=== PATIENT | male | born 1950 | race African-American/Black ===

== ENCOUNTER 2021-05-10 05:47 | Inpatient (IN) ==
[2021-05-04 11:25] LABS: Basophils % 0.2 % (0.0-0.8); Eosinophils % 0.1 % (0.00-10.9); Hematocrit 30.7 VOL% (42.0-52.0); Hemoglobin 9.7 GM/DL (14.0-18.0); Immature Granulocytes % 4.1 %; Immature Granulocytes Absolute 0.45 #; Lymphocytes # 1.6 10*3/uL (1.4-4.0); Lymphocytes % 14.1 % (21.2-54.2); Mean Corpuscular HGB Conc 31.6 GM/DL (32-36); Mean Corpuscular Volume 87.2 FL (87-102); Mean Platelet Volume 10.7 FL (9.6-12.0); Monocytes % 5.8 % (1.7-12.7); Neutrophils % 75.7 % (38.7-73.9); Platelet Count 383 T/CUMM (130-400); Red Blood Count 3.52 MC/CUMM (3.8-5.5); Red Cell Distribution Width 14.6 % (9.3-17.3)
[2021-05-04 11:55] LABS: Alanine Aminotransferase 38 U/L (16-61); Albumin 2.8 G/DL (3.4-5.0); Alkaline Phosphatase 57 U/L (45-117); Aspartate Amino Transferase 19 U/L (0-37); Bilirubin,Total < 0.39 MG/DL (0.20-1.00); Blood Urea Nitrogen 124 MG/DL (7-18); Calcium 8.2 MG/DL (8.5-10.1); Carbon Dioxide 14 MMOL/L (21-32); Estimated Glom Filtration Rate 6 ML/MIN; Glucose 91 MG/DL (74-106); Osmolality,Calculated 322.1 MOS/KG (273-304); Sodium 142 MMOL/L (136-145); Total Protein 6.1 G/DL (6.4-8.2)
[2021-05-10] MEDS ORDERED: cefTRIAXone 1,000 MG in SODIUM CHLORIDE 0.9% 100 ML IV ONE (07:00)
[2021-05-10] MEDS ORDERED: LACTATED RINGERS 1,000 ML IV SCH (09:00)
[2021-05-10 09:02] LABS: Basophils % 0.2 % (0.0-0.8); Hematocrit 27.1 VOL% (42.0-52.0); Hemoglobin 8.3 GM/DL (14.0-18.0); Immature Granulocytes % 1.1 %; Immature Granulocytes Absolute 0.14 #; Lymphocytes % 7.6 % (21.2-54.2); Mean Corpuscular HGB Conc 30.6 GM/DL (32-36); Mean Platelet Volume 10.6 FL (9.6-12.0); Monocytes % 6.1 % (1.7-12.7); Platelet Count 178 T/CUMM (130-400); Red Blood Count 3.01 MC/CUMM (3.8-5.5); Red Cell Distribution Width 15.2 % (9.3-17.3); White Blood Count 12.7 T/CUMM (4-12)
[2021-05-10 09:33] LABS: Calcium 8.3 MG/DL (8.5-10.1); Osmolality,Calculated 319.4 MOS/KG (273-304)
[2021-05-10 09:36] LABS: Potassium 6.8 MMOL/L (3.5-5.1)
[2021-05-10] MEDS ORDERED: MAGNESIUM SULF RIDER 2 GM/50 ML PREMIX IV ONE (11:25)
[2021-05-10 13:02] LABS: Calcium 8.2 MG/DL (8.5-10.1); Osmolality,Calculated 317.4 MOS/KG (273-304)
[2021-05-10 13:05] LABS: Potassium 6.2 MMOL/L (3.5-5.1)
[2021-05-10] MEDS ORDERED: ALBUTEROL 1.25 MG/3 ML NEB RESP TX PRN (14:21)
[2021-05-10] MEDS ORDERED: SODIUM POLYSTYRENE SULFATE 15 GM/60 ML BOTTLE PO ONE (14:49)
[2021-05-10] MEDS: SODIUM BICARBONATE 650 MG TABLET PO SCH ×2 (15:27→21:40)
[2021-05-10] MEDS: MYCOPHENOLATE MOFETIL 250 MG CAPSULE PO SCH ×2 (15:27→21:40)
[2021-05-10] MEDS: SODIUM ZIRCONIUM CYCLOSILICATE 10 GM PACK PO SCH ×3 (15:28→21:40)
[2021-05-10] MEDS ORDERED: SODIUM BICARBONATE 50 MEQ/50 ML VIAL IV ONE (15:36)
[2021-05-10] MEDS ORDERED: SODIUM BICARB INJ 50 MEQ in IV BAG 1 EACH IV ONE ×2 (16:00→19:00)
[2021-05-10] MEDS ORDERED: MAGNESIUM HYDROXIDE SUSP 30 ML UDCUP PO ONE (17:00)
[2021-05-10] MEDS ORDERED: AZITHROMYCIN 250 MG TABLET PO ONE (17:00)
[2021-05-10] MEDS: ALBUTEROL/IPRATROPIUM 3 ML NEB RESP TX SCH (19:12)
[2021-05-10 20:55] LABS: Bacteria,Urine Occasional /HPF (Few); Bilirubin,Urine Negative (Negative); Blood, Urine Small mg/dL (Negative); Glucose,Urine (UA) Negative (Negative); Ketones,Urine Negative (Negative); Mucus,Urine Occasional /LPF (Occasional); Nitrite,Urine Negative (Negative); Protein,Urine 30 MG/DL; RBC,Urine 4 /HPF (0-4); Urine Appearance CLEAR (Clear); Urine Color Straw (Yellow); Urine Specific Gravity 1.009 (1.001-1.035); Urine Urobilinogen < 2.0 EU/DL (0.2-1.0)
[2021-05-10] MEDS ORDERED: SENNA 8.6 MG TABLET PO SCH (21:00)
[2021-05-10] MEDS: predniSONE 10 MG TABLET PO SCH (21:40)
[2021-05-10] MEDS: DOCUSATE SODIUM 100 MG CAPSULE PO SCH (21:41)
[2021-05-10] MEDS: SIMVASTATIN 10 MG TABLET PO SCH (21:41)
[2021-05-10] MEDS: FINASTERIDE 5 MG TABLET PO SCH (21:41)
[2021-05-10] MEDS: amLODIPine 5 MG TABLET PO SCH (21:41)
[2021-05-10] MEDS: TAMSULOSIN 0.4 MG CAPSULE PO SCH (21:41)
[2021-05-10] MEDS: POLYETHYLENE GLYCOL POWDER 17 GM PACK PO SCH (21:49)
[2021-05-11] MEDS: ALBUTEROL/IPRATROPIUM 3 ML NEB RESP TX SCH ×4 (00:21→19:55)
[2021-05-11 06:56] LABS: Hemoglobin 7.9 GM/DL (14.0-18.0); Immature Granulocytes % 0.9 %; Immature Granulocytes Absolute 0.08 #; Lymphocytes # 0.8 10*3/uL (1.4-4.0); Lymphocytes % 8.9 % (21.2-54.2); Mean Corpuscular HGB Conc 31.6 GM/DL (32-36); Mean Corpuscular Volume 86.8 FL (87-102); Mean Platelet Volume 11.5 FL (9.6-12.0); Monocytes % 4.4 % (1.7-12.7); Neutrophils % 85.8 % (38.7-73.9); Platelet Count 167 T/CUMM (130-400); Red Blood Count 2.88 MC/CUMM (3.8-5.5); White Blood Count 9.3 T/CUMM (4-12)
[2021-05-11 07:22] LABS: Calcium 8.3 MG/DL (8.5-10.1); Osmolality,Calculated 314.4 MOS/KG (273-304)
[2021-05-11 07:25] LABS: Risk Ratio 2.25; VLDL Cholesterol 28.6 MG/DL
[2021-05-11 07:27] LABS: % Iron Saturation 21.7 % (18-50); Ferritin 1065.6 ng/mL (26-388)
[2021-05-11 07:35] LABS: Parathyroid Hormone Intact 223.3 PG/ML (18.4-80.1)
[2021-05-11 07:55] LABS: Folate > 24.00 NG/ML (5.38-24.0); Vitamin B12 > 2000 PG/ML (211-911)
[2021-05-11 08:04] LABS: Sedimentation Rate-Westergren 69 MM/HR (0-20)
[2021-05-11 08:29] LABS: Hepatitis B Core IgM Quant 0.13 Index; Hepatitis B Surface Ag Quant < 0.10 Index; Hepatitis B Surface Ag Result Non-Reactive (NonReactive); Hepatitis C Virus Ab Quant 0.02 Index; Hepatitis C Virus Ab Result Non-Reactive (NonReactive)
[2021-05-11 09:14] LABS: Basophils % 0.1 % (0.0-0.8); Eosinophils % 0.1 % (0.00-10.9); Hematocrit 25.2 VOL% (42.0-52.0); Hemoglobin 7.9 GM/DL (14.0-18.0); Immature Granulocytes Absolute 0.09 #; Lymphocytes # 0.8 10*3/uL (1.4-4.0); Lymphocytes % 8.3 % (21.2-54.2); Mean Corpuscular HGB Conc 31.3 GM/DL (32-36); Mean Corpuscular Volume 87.5 FL (87-102); Mean Platelet Volume 11.2 FL (9.6-12.0); Monocytes % 4.9 % (1.7-12.7); Neutrophils % 85.6 % (38.7-73.9); Platelet Count 166 T/CUMM (130-400); Red Blood Count 2.88 MC/CUMM (3.8-5.5); Red Cell Distribution Width 15.2 % (9.3-17.3); White Blood Count 9.3 T/CUMM (4-12)
[2021-05-11] MEDS: DOCUSATE SODIUM 100 MG CAPSULE PO SCH (10:43)
[2021-05-11] MEDS: MYCOPHENOLATE MOFETIL 250 MG CAPSULE PO SCH ×3 (10:43→21:42)
[2021-05-11] MEDS: AZITHROMYCIN 250 MG TABLET PO SCH (10:44)
[2021-05-11] MEDS: SODIUM BICARBONATE 650 MG TABLET PO SCH ×3 (10:44→21:43)
[2021-05-11] MEDS: cefTRIAXone 1,000 MG in SODIUM CHLORIDE 0.9% 100 ML IV SCH (10:44)
[2021-05-11] MEDS ORDERED: LUBIPROSTONE 24 MCG CAPSULE PO SCH (11:00)
[2021-05-11] MEDS ORDERED: LIDOCAINE 1%/EPI INJ 20 ML VIAL ONE (12:51)
[2021-05-11] MEDS ORDERED: BUPIVACAINE MPF 0.25% 30 ML VIAL ONE (12:51)
[2021-05-11] MEDS ORDERED: HEPARIN 5,000 UNIT/1 ML VIAL ONE (12:51)
[2021-05-11] MEDS ORDERED: SODIUM CHLORIDE 0.9% 250 ML IV SCH (13:00)
[2021-05-11] MEDS ORDERED: MIDAZOLAM 2 MG/2 ML VIAL ONE (13:16)
[2021-05-11] MEDS ORDERED: propofoL 200 MG/20 ML VIAL IV ONE (13:36)
[2021-05-11] MEDS ORDERED: HEPARIN 10,000 UNIT/10 ML VIAL IV SCH (15:30)
[2021-05-11] MEDS: CHOLECALCIFEROL 1,000 UNIT TABLET PO SCH (17:28)
[2021-05-11] MEDS: SODIUM ZIRCONIUM CYCLOSILICATE 10 GM PACK PO SCH ×2 (17:29→21:43)
[2021-05-11] MEDS: POLYETHYLENE GLYCOL POWDER 17 GM PACK PO SCH (17:31)
[2021-05-11] MEDS: SIMVASTATIN 10 MG TABLET PO SCH (21:42)
[2021-05-11] MEDS: TAMSULOSIN 0.4 MG CAPSULE PO SCH (21:42)
[2021-05-11] MEDS: predniSONE 10 MG TABLET PO SCH (21:42)
[2021-05-11] MEDS: amLODIPine 5 MG TABLET PO SCH (21:43)
[2021-05-11] MEDS: FINASTERIDE 5 MG TABLET PO SCH (21:43)
[2021-05-12] MEDS: ALBUTEROL/IPRATROPIUM 3 ML NEB RESP TX SCH ×4 (02:14→19:40)
[2021-05-12 04:54] LABS: Basophils % 0.1 % (0.0-0.8); Hematocrit 26.8 VOL% (42.0-52.0); Hemoglobin 8.4 GM/DL (14.0-18.0); Immature Granulocytes % 1.1 %; Immature Granulocytes Absolute 0.09 #; Lymphocytes # 0.7 10*3/uL (1.4-4.0); Lymphocytes % 9.1 % (21.2-54.2); Mean Corpuscular HGB Conc 31.3 GM/DL (32-36); Mean Corpuscular Volume 87.6 FL (87-102); Mean Platelet Volume 11.1 FL (9.6-12.0); Monocytes % 5.4 % (1.7-12.7); Neutrophils % 84.3 % (38.7-73.9); Platelet Count 149 T/CUMM (130-400); Red Blood Count 3.06 MC/CUMM (3.8-5.5); White Blood Count 8.2 T/CUMM (4-12)
[2021-05-12 05:17] LABS: Hypochromasia 1+; Microcytosis 1+; Platelet Estimate Adequate
[2021-05-12 05:28] LABS: Calcium 8.1 MG/DL (8.5-10.1); Osmolality,Calculated 297.5 MOS/KG (273-304)
[2021-05-12] MEDS ORDERED: INSULIN REGULAR 10 UNIT, CALCIUM GLUCONATE 1,000 MG in DEXTROSE 10% 250 ML IV ONE (06:06)
[2021-05-12] MEDS: CHOLECALCIFEROL 1,000 UNIT TABLET PO SCH (11:32)
[2021-05-12] MEDS: AZITHROMYCIN 250 MG TABLET PO SCH (11:32)
[2021-05-12] MEDS: cefTRIAXone 1,000 MG in SODIUM CHLORIDE 0.9% 100 ML IV SCH (11:32)
[2021-05-12] MEDS: SODIUM BICARBONATE 650 MG TABLET PO SCH ×3 (11:32→21:24)
[2021-05-12] MEDS: MYCOPHENOLATE MOFETIL 250 MG CAPSULE PO SCH ×3 (11:32→21:24)
[2021-05-12] MEDS: LINACLOTIDE 145 MCG CAPSULE PO SCH (12:44)
[2021-05-12] MEDS ORDERED: BISACODYL 5 MG TABLET PO ONE (15:00)
[2021-05-12] MEDS ORDERED: SODIUM PHOSPHATE ENEMA 133 ML BOTTLE RECTAL ONE (15:00)
[2021-05-12] MEDS: LACTULOSE 20 GM/30 ML UDCUP PO SCH (21:23)
[2021-05-12] MEDS: SIMVASTATIN 10 MG TABLET PO SCH (21:24)
[2021-05-12] MEDS: TAMSULOSIN 0.4 MG CAPSULE PO SCH (21:24)
[2021-05-12] MEDS: DOCUSATE SODIUM 100 MG CAPSULE PO SCH (21:24)
[2021-05-12] MEDS: predniSONE 10 MG TABLET PO SCH (21:24)
[2021-05-12] MEDS: FINASTERIDE 5 MG TABLET PO SCH (21:24)
[2021-05-12] MEDS: POLYETHYLENE GLYCOL POWDER 17 GM PACK PO SCH (21:33)
[2021-05-12] MEDS: LUBIPROSTONE 24 MCG CAPSULE PO SCH (21:34)
[2021-05-13] MEDS: ALBUTEROL/IPRATROPIUM 3 ML NEB RESP TX SCH ×4 (00:45→20:15)
[2021-05-13 07:04] LABS: Basophils % 0.1 % (0.0-0.8); Hematocrit 30.8 VOL% (42.0-52.0); Hemoglobin 9.2 GM/DL (14.0-18.0); Immature Granulocytes % 1.9 %; Immature Granulocytes Absolute 0.16 #; Lymphocytes # 0.6 10*3/uL (1.4-4.0); Lymphocytes % 7.5 % (21.2-54.2); Mean Corpuscular HGB Conc 29.9 GM/DL (32-36); Mean Corpuscular Volume 89.3 FL (87-102); Mean Platelet Volume 11.5 FL (9.6-12.0); Monocytes % 6.3 % (1.7-12.7); Neutrophils % 84.2 % (38.7-73.9); Platelet Count 155 T/CUMM (130-400); Red Blood Count 3.45 MC/CUMM (3.8-5.5); Red Cell Distribution Width 15.1 % (9.3-17.3); White Blood Count 8.6 T/CUMM (4-12)
[2021-05-13 07:31] LABS: Calcium 8.7 MG/DL (8.5-10.1); Osmolality,Calculated 295.1 MOS/KG (273-304); Potassium 4.7 MMOL/L (3.5-5.1)
[2021-05-13] MEDS: cefTRIAXone 1,000 MG in SODIUM CHLORIDE 0.9% 100 ML IV SCH (08:17)
[2021-05-13] MEDS: DOCUSATE SODIUM 100 MG CAPSULE PO SCH ×2 (08:18→22:37)
[2021-05-13] MEDS: MYCOPHENOLATE MOFETIL 250 MG CAPSULE PO SCH ×3 (08:18→22:36)
[2021-05-13] MEDS: AZITHROMYCIN 250 MG TABLET PO SCH (08:18)
[2021-05-13] MEDS: SODIUM BICARBONATE 650 MG TABLET PO SCH ×3 (08:18→22:37)
[2021-05-13] MEDS: CHOLECALCIFEROL 1,000 UNIT TABLET PO SCH (08:18)
[2021-05-13] MEDS: LUBIPROSTONE 24 MCG CAPSULE PO SCH ×2 (08:18→22:36)
[2021-05-13] MEDS: LINACLOTIDE 145 MCG CAPSULE PO SCH (08:23)
[2021-05-13] MEDS: LACTULOSE 20 GM/30 ML UDCUP PO SCH (09:25)
[2021-05-13] MEDS: POLYETHYLENE GLYCOL POWDER 17 GM PACK PO SCH ×2 (09:26→22:38)
[2021-05-13 11:24] LABS: Hemoglobin A1 (Alkaline) 96.7 % (96.5-98.5); Hemoglobin A2 (Alkaline) 3.3 % (1.5-3.5)
[2021-05-13] MEDS ORDERED: ceFAZolin 2,000 MG/50 ML DUPLEX IV ONE (13:59)
[2021-05-13] MEDS: ENOXAPARIN 60 MG/0.6 ML SYRINGE SUBCUT SCH (16:25)
[2021-05-13] MEDS: TAMSULOSIN 0.4 MG CAPSULE PO SCH (22:37)
[2021-05-13] MEDS: FINASTERIDE 5 MG TABLET PO SCH (22:37)
[2021-05-13] MEDS: SIMVASTATIN 10 MG TABLET PO SCH (22:38)
[2021-05-13] MEDS: predniSONE 10 MG TABLET PO SCH (22:38)
[2021-05-14] MEDS: ALBUTEROL/IPRATROPIUM 3 ML NEB RESP TX SCH ×4 (01:48→19:23)
[2021-05-14 05:29] LABS: Basophils % 0.2 % (0.0-0.8); Eosinophils % 0.4 % (0.00-10.9); Hematocrit 27.3 VOL% (42.0-52.0); Hemoglobin 8.2 GM/DL (14.0-18.0); Immature Granulocytes % 3.5 %; Immature Granulocytes Absolute 0.35 #; Lymphocytes # 0.8 10*3/uL (1.4-4.0); Mean Platelet Volume 10.8 FL (9.6-12.0); Monocytes % 6.5 % (1.7-12.7); Neutrophils % 81.4 % (38.7-73.9); Platelet Count 127 T/CUMM (130-400); Red Cell Distribution Width 14.8 % (9.3-17.3); White Blood Count 9.9 T/CUMM (4-12)
[2021-05-14 05:54] LABS: Calcium 8.4 MG/DL (8.5-10.1); Osmolality,Calculated 284.5 MOS/KG (273-304); Potassium 4.3 MMOL/L (3.5-5.1)
[2021-05-14 06:21] LABS: Band Neutrophils 2 % (0-10); Eosinophils 1 % (0-10); Hypochromasia 1+; Lymphocytes 6 % (20-55); Microcytosis 1+; Platelet Estimate Normal; Segmented Neutrophils 90 % (50-85); Total Cells Counted 100
[2021-05-14] MEDS: POLYETHYLENE GLYCOL POWDER 17 GM PACK PO SCH (08:23)
[2021-05-14] MEDS: MYCOPHENOLATE MOFETIL 250 MG CAPSULE PO SCH ×3 (08:25→21:19)
[2021-05-14] MEDS: LUBIPROSTONE 24 MCG CAPSULE PO SCH (08:25)
[2021-05-14] MEDS: ENOXAPARIN 60 MG/0.6 ML SYRINGE SUBCUT SCH (08:25)
[2021-05-14] MEDS: CHOLECALCIFEROL 1,000 UNIT TABLET PO SCH (08:25)
[2021-05-14] MEDS: LINACLOTIDE 145 MCG CAPSULE PO SCH (08:25)
[2021-05-14] MEDS: AZITHROMYCIN 250 MG TABLET PO SCH (08:25)
[2021-05-14] MEDS: DOCUSATE SODIUM 100 MG CAPSULE PO SCH ×2 (08:25→21:19)
[2021-05-14] MEDS: SODIUM BICARBONATE 650 MG TABLET PO SCH ×3 (08:25→21:20)
[2021-05-14] MEDS: cefTRIAXone 1,000 MG in SODIUM CHLORIDE 0.9% 100 ML IV SCH (08:26)
[2021-05-14] MEDS: predniSONE 10 MG TABLET PO SCH (21:19)
[2021-05-14] MEDS: TAMSULOSIN 0.4 MG CAPSULE PO SCH (21:19)
[2021-05-14] MEDS: FINASTERIDE 5 MG TABLET PO SCH (21:20)
[2021-05-14] MEDS: SIMVASTATIN 10 MG TABLET PO SCH (21:20)
[2021-05-15] MEDS: ALBUTEROL/IPRATROPIUM 3 ML NEB RESP TX SCH ×4 (00:48→19:58)
[2021-05-15 05:53] LABS: Basophils % 0.2 % (0.0-0.8); Eosinophils % 0.2 % (0.00-10.9); Hematocrit 25.2 VOL% (42.0-52.0); Hemoglobin 7.5 GM/DL (14.0-18.0); Immature Granulocytes % 3.4 %; Immature Granulocytes Absolute 0.32 #; Lymphocytes % 11.1 % (21.2-54.2); Mean Corpuscular HGB Conc 29.8 GM/DL (32-36); Mean Corpuscular Volume 91.3 FL (87-102); Mean Platelet Volume 11.1 FL (9.6-12.0); Neutrophils % 78.1 % (38.7-73.9); Platelet Count 124 T/CUMM (130-400); Red Blood Count 2.76 MC/CUMM (3.8-5.5); Red Cell Distribution Width 14.8 % (9.3-17.3); White Blood Count 9.3 T/CUMM (4-12)
[2021-05-15 06:12] LABS: Calcium 8.3 MG/DL (8.5-10.1); Osmolality,Calculated 285.7 MOS/KG (273-304); Potassium 5.1 MMOL/L (3.5-5.1)
[2021-05-15 08:46] LABS: Anisocytosis 2+; Lymphocytes 13 % (20-55); Metamyelocytes 1 %; Myelocytes 1 %; Platelet Estimate Adequate; Segmented Neutrophils 79 % (50-85); Total Cells Counted 100
[2021-05-15 08:47] LABS: Burr Cells Few; Macrocytosis 1+
[2021-05-15] MEDS: LINACLOTIDE 145 MCG CAPSULE PO SCH (10:20)
[2021-05-15] MEDS: SODIUM BICARBONATE 650 MG TABLET PO SCH (10:21)
[2021-05-15] MEDS: CHOLECALCIFEROL 1,000 UNIT TABLET PO SCH (10:21)
[2021-05-15] MEDS: MYCOPHENOLATE MOFETIL 250 MG CAPSULE PO SCH (10:21)
[2021-05-15] MEDS: cefTRIAXone 1,000 MG in SODIUM CHLORIDE 0.9% 100 ML IV SCH (10:22)
[2021-05-15] MEDS: DOCUSATE SODIUM 100 MG CAPSULE PO SCH ×2 (10:22→20:51)
[2021-05-15] MEDS: ENOXAPARIN 60 MG/0.6 ML SYRINGE SUBCUT SCH (10:22)
[2021-05-15] MEDS ORDERED: LEVOFLOXACIN INJ 500 MG/100 ML PREMIX IV SCH (11:00)
[2021-05-15 11:56] LABS: PT Patient Result 10.9 SECS (10.5-12.0)
[2021-05-15] MEDS: WARFARIN 2 MG TABLET PO SCH (17:18)
[2021-05-15] MEDS: DOXYCYCLINE HYCLATE 100 MG CAPSULE PO SCH (20:50)
[2021-05-15] MEDS: FINASTERIDE 5 MG TABLET PO SCH (20:50)
[2021-05-15] MEDS: SIMVASTATIN 10 MG TABLET PO SCH (20:50)
[2021-05-15] MEDS: TAMSULOSIN 0.4 MG CAPSULE PO SCH (20:51)
[2021-05-16] MEDS: ALBUTEROL/IPRATROPIUM 3 ML NEB RESP TX SCH ×4 (00:32→19:56)
[2021-05-16] MEDS ORDERED: ceFAZolin 2,000 MG/50 ML DUPLEX IV ONE (06:00)
[2021-05-16 06:16] LABS: Basophils % 0.1 % (0.0-0.8); Eosinophils # 0.2 10*3/uL (0.0-0.87); Eosinophils % 2.2 % (0.00-10.9); Hematocrit 22.4 VOL% (42.0-52.0); Hemoglobin 6.7 GM/DL (14.0-18.0); Immature Granulocytes % 2.8 %; Immature Granulocytes Absolute 0.19 #; Lymphocytes # 1.6 10*3/uL (1.4-4.0); Lymphocytes % 23.9 % (21.2-54.2); Mean Corpuscular HGB Conc 29.9 GM/DL (32-36); Mean Corpuscular Volume 90.7 FL (87-102); Mean Platelet Volume 10.6 FL (9.6-12.0); Monocytes % 8.6 % (1.7-12.7); Neutrophils % 62.4 % (38.7-73.9); Platelet Count 115 T/CUMM (130-400); Red Blood Count 2.47 MC/CUMM (3.8-5.5); Red Cell Distribution Width 14.8 % (9.3-17.3); White Blood Count 6.8 T/CUMM (4-12)
[2021-05-16] MEDS ORDERED: SODIUM CHLORIDE 0.9% 250 ML IV SCH (06:30)
[2021-05-16 06:31] LABS: PT Patient Result 10.7 SECS (10.5-12.0)
[2021-05-16] MEDS ORDERED: propofoL 200 MG/20 ML VIAL IV ONE (06:36)
[2021-05-16] MEDS ORDERED: ROCURONIUM 50 MG/5 ML VIAL IV ONE (06:36)
[2021-05-16] MEDS ORDERED: fentaNYL 100 MCG/2 ML VIAL ONE (06:36)
[2021-05-16] MEDS ORDERED: LIDOCAINE 2% 5 ML VIAL ONE (06:36)
[2021-05-16 06:40] LABS: Potassium 4.8 MMOL/L (3.5-5.1)
[2021-05-16] MEDS ORDERED: FAMOTIDINE 20 MG/2 ML VIAL IV ONE (06:52)
[2021-05-16] MEDS ORDERED: HYDROCORTISONE 100 MG VIAL ONE (06:56)
[2021-05-16] MEDS ORDERED: SODIUM CHLORIDE 0.9% 1,000 ML IV PRN (08:25)
[2021-05-16] MEDS: ENOXAPARIN 60 MG/0.6 ML SYRINGE SUBCUT SCH (12:59)
[2021-05-16] MEDS: LINACLOTIDE 145 MCG CAPSULE PO SCH (12:59)
[2021-05-16] MEDS: DOCUSATE SODIUM 100 MG CAPSULE PO SCH ×2 (13:00→21:04)
[2021-05-16] MEDS: CHOLECALCIFEROL 1,000 UNIT TABLET PO SCH (13:00)
[2021-05-16] MEDS: DOXYCYCLINE HYCLATE 100 MG CAPSULE PO SCH ×2 (13:00→21:04)
[2021-05-16 15:11] LABS: Hematocrit 34.8 VOL% (42.0-52.0); Hemoglobin 10.7 GM/DL (14.0-18.0)
[2021-05-16] MEDS: WARFARIN 2 MG TABLET PO SCH (17:39)
[2021-05-16] MEDS: SIMVASTATIN 10 MG TABLET PO SCH (21:04)
[2021-05-16] MEDS: FINASTERIDE 5 MG TABLET PO SCH (21:04)
[2021-05-16] MEDS: TAMSULOSIN 0.4 MG CAPSULE PO SCH (21:04)
[2021-05-17] MEDS: ALBUTEROL/IPRATROPIUM 3 ML NEB RESP TX SCH ×4 (00:48→20:00)
[2021-05-17 05:23] LABS: Basophils % 0.6 % (0.0-0.8); Eosinophils # 0.2 10*3/uL (0.0-0.87); Eosinophils % 2.3 % (0.00-10.9); Hematocrit 31.7 VOL% (42.0-52.0); Hemoglobin 10.2 GM/DL (14.0-18.0); Immature Granulocytes % 3.9 %; Immature Granulocytes Absolute 0.26 #; Lymphocytes # 1.5 10*3/uL (1.4-4.0); Lymphocytes % 22.9 % (21.2-54.2); Mean Corpuscular HGB Conc 32.2 GM/DL (32-36); Mean Corpuscular Volume 87.3 FL (87-102); Mean Platelet Volume 11.2 FL (9.6-12.0); Monocytes % 10.4 % (1.7-12.7); Neutrophils % 59.9 % (38.7-73.9); Platelet Count 114 T/CUMM (130-400); Red Blood Count 3.63 MC/CUMM (3.8-5.5); Red Cell Distribution Width 15.9 % (9.3-17.3); White Blood Count 6.6 T/CUMM (4-12)
[2021-05-17 05:28] LABS: PT Patient Result 10.9 SECS (10.5-12.0)
[2021-05-17 05:48] LABS: Calcium 8.3 MG/DL (8.5-10.1); Osmolality,Calculated 280.7 MOS/KG (273-304); Potassium 4.5 MMOL/L (3.5-5.1)
[2021-05-17] MEDS: DOCUSATE SODIUM 100 MG CAPSULE PO SCH ×2 (09:17→21:06)
[2021-05-17] MEDS: WARFARIN 5 MG TABLET PO SCH (09:17)
[2021-05-17] MEDS: CHOLECALCIFEROL 1,000 UNIT TABLET PO SCH (09:17)
[2021-05-17] MEDS: ENOXAPARIN 60 MG/0.6 ML SYRINGE SUBCUT SCH (09:18)
[2021-05-17] MEDS: LINACLOTIDE 145 MCG CAPSULE PO SCH (09:18)
[2021-05-17] MEDS: TAMSULOSIN 0.4 MG CAPSULE PO SCH (21:06)
[2021-05-17] MEDS: FINASTERIDE 5 MG TABLET PO SCH (21:06)
[2021-05-17] MEDS: SIMVASTATIN 10 MG TABLET PO SCH (21:06)
[2021-05-18] MEDS: ALBUTEROL/IPRATROPIUM 3 ML NEB RESP TX SCH ×4 (00:59→20:30)
[2021-05-18 05:18] LABS: Basophils % 0.6 % (0.0-0.8); Eosinophils # 0.2 10*3/uL (0.0-0.87); Eosinophils % 2.1 % (0.00-10.9); Hematocrit 33.3 VOL% (42.0-52.0); Hemoglobin 10.6 GM/DL (14.0-18.0); Immature Granulocytes % 3.9 %; Immature Granulocytes Absolute 0.27 #; Lymphocytes # 1.8 10*3/uL (1.4-4.0); Lymphocytes % 25.6 % (21.2-54.2); Mean Corpuscular HGB Conc 31.8 GM/DL (32-36); Mean Corpuscular Volume 87.9 FL (87-102); Mean Platelet Volume 10.7 FL (9.6-12.0); Monocytes % 10.9 % (1.7-12.7); Neutrophils % 56.9 % (38.7-73.9); Platelet Count 111 T/CUMM (130-400); Red Blood Count 3.79 MC/CUMM (3.8-5.5); Red Cell Distribution Width 15.6 % (9.3-17.3)
[2021-05-18 05:29] LABS: INR 0.9; PT Patient Result 10.6 SECS (10.5-12.0)
[2021-05-18 05:37] LABS: Calcium 8.8 MG/DL (8.5-10.1); Osmolality,Calculated 283.1 MOS/KG (273-304); Potassium 4.7 MMOL/L (3.5-5.1)
[2021-05-18 05:41] LABS: Hypochromasia 1+; Microcytosis 1+; Platelet Estimate Decreased
[2021-05-18] MEDS: ENOXAPARIN 60 MG/0.6 ML SYRINGE SUBCUT SCH (09:02)
[2021-05-18] MEDS: LINACLOTIDE 145 MCG CAPSULE PO SCH (09:03)
[2021-05-18] MEDS: WARFARIN 5 MG TABLET PO SCH (09:03)
[2021-05-18] MEDS: DOCUSATE SODIUM 100 MG CAPSULE PO SCH ×2 (09:03→20:51)
[2021-05-18] MEDS: CHOLECALCIFEROL 1,000 UNIT TABLET PO SCH (09:03)
[2021-05-18] MEDS: SIMVASTATIN 10 MG TABLET PO SCH (20:51)
[2021-05-18] MEDS: TAMSULOSIN 0.4 MG CAPSULE PO SCH (20:51)
[2021-05-18] MEDS: FINASTERIDE 5 MG TABLET PO SCH (20:51)
[2021-05-19] MEDS: ALBUTEROL/IPRATROPIUM 3 ML NEB RESP TX SCH ×3 (00:40→12:15)
[2021-05-19 06:37] LABS: Basophils % 0.3 % (0.0-0.8); Eosinophils # 0.1 10*3/uL (0.0-0.87); Eosinophils % 1.9 % (0.00-10.9); Hematocrit 30.9 VOL% (42.0-52.0); Hemoglobin 9.5 GM/DL (14.0-18.0); Immature Granulocytes % 3.9 %; Immature Granulocytes Absolute 0.26 #; Lymphocytes # 1.4 10*3/uL (1.4-4.0); Mean Corpuscular HGB Conc 30.7 GM/DL (32-36); Mean Corpuscular Volume 88.3 FL (87-102); Mean Platelet Volume 10.4 FL (9.6-12.0); Monocytes % 12.2 % (1.7-12.7); Neutrophils % 60.7 % (38.7-73.9); Platelet Count 128 T/CUMM (130-400); Red Cell Distribution Width 15.4 % (9.3-17.3); White Blood Count 6.7 T/CUMM (4-12)
[2021-05-19 06:51] LABS: PT Patient Result 11.3 SECS (10.5-12.0)
[2021-05-19 06:57] LABS: Eosinophils 3 % (0-10); Lymphocytes 18 % (20-55); Segmented Neutrophils 67 % (50-85); Total Cells Counted 100
[2021-05-19 06:58] LABS: Hypochromasia 1+; Microcytosis 1+; Platelet Estimate Normal
[2021-05-19 07:04] LABS: Calcium 8.2 MG/DL (8.5-10.1); Osmolality,Calculated 280.7 MOS/KG (273-304); Potassium 4.2 MMOL/L (3.5-5.1)
[2021-05-19] MEDS: DOCUSATE SODIUM 100 MG CAPSULE PO SCH (09:24)
[2021-05-19] MEDS: LINACLOTIDE 145 MCG CAPSULE PO SCH (09:24)
[2021-05-19] MEDS: WARFARIN 5 MG TABLET PO SCH (09:24)
[2021-05-19] MEDS: CHOLECALCIFEROL 1,000 UNIT TABLET PO SCH (09:24)
[2021-05-19] MEDS: ENOXAPARIN 60 MG/0.6 ML SYRINGE SUBCUT SCH (09:25)
[2021-05-19 12:08] VITALS: BP 99/59
== END 2021-05-19 13:47 | disposition home health service (06) | DRG 699 ==
LOC: N.SDSINP 05:47 → N.OR 05:47 → N.5E 05:47 → N.SDSINP 05:48 → N.5E 11:45 → SUATTDRO 05-12 07:49
PROVIDERS: ADMIT Surgery; ATTEND Internal Medicine

== ENCOUNTER 2022-07-16 00:05 | Inpatient (IN) ==
[2022-07-16] MEDS ORDERED: ONDANSETRON 4 MG/2 ML VIAL IV STA (00:22)
[2022-07-16] MEDS ORDERED: MORPHINE 2 MG/1 ML SYRINGE IV STA (00:54)
[2022-07-16 01:46] LABS: Basophils % 0.2 % (0.0-0.8); Eosinophils # 0.1 10*3/uL (0.0-0.87); Eosinophils % 0.8 % (0.00-10.9); Hematocrit 43.2 VOL% (42.0-52.0); Hemoglobin 14.4 GM/DL (14.0-18.0); Immature Granulocytes % 0.4 %; Immature Granulocytes Absolute 0.04 #; Lymphocytes # 2.9 10*3/uL (1.4-4.0); Lymphocytes % 27.3 % (21.2-54.2); Mean Corpuscular HGB Conc 33.3 GM/DL (32-36); Mean Corpuscular Volume 89.6 FL (87-102); Mean Platelet Volume 9.9 FL (9.6-12.0); Monocytes # 0.7 10*3/uL (0.11-0.8); Monocytes % 6.7 % (1.7-12.7); Neutrophils % 64.6 % (38.7-73.9); Platelet Count 207 T/CUMM (130-400); Red Blood Count 4.82 MC/CUMM (3.8-5.5); Red Cell Distribution Width 13.1 % (9.3-17.3); White Blood Count 10.6 T/CUMM (4-12)
[2022-07-16 02:17] LABS: Alanine Aminotransferase 63 U/L (16-61); Albumin 3.3 G/DL (3.4-5.0); Alkaline Phosphatase 81 U/L (45-117); Aspartate Amino Transferase 52 U/L (0-37); Bilirubin,Total < 0.39 MG/DL (0.20-1.00); Blood Urea Nitrogen 55 MG/DL (7-18); Calcium 9.2 MG/DL (8.5-10.1); Carbon Dioxide 33 MMOL/L (21-32); Chloride 99 MMOL/L (98-107); Glucose 117 MG/DL (74-106); Osmolality,Calculated 294.4 MOS/KG (273-304); Potassium 3.6 MMOL/L (3.5-5.1); Sodium 140 MMOL/L (136-145); Total Protein 7.1 G/DL (6.4-8.2)
[2022-07-16 03:30] LABS: PT Patient Result 71.9 SECS (10.1-12.1)
[2022-07-16 03:32] LABS: INR 7.5
[2022-07-16] MEDS ORDERED: PHYTONADIONE 10 MG/1 ML AMP SUBCUT ONE (04:30)
[2022-07-16] MEDS: ONDANSETRON 4 MG/2 ML VIAL IV PRN ×2 (06:26→19:47)
[2022-07-16] MEDS ORDERED: PHYTONADIONE INJ 5 MG in SODIUM CHLORIDE 0.9% 50 ML IV ONE (09:00)
[2022-07-16] MEDS: MULTIVITAMIN (BEROCCA) TABLET PO SCH (10:17)
[2022-07-16] MEDS: LOSARTAN 50 MG TABLET PO SCH (10:17)
[2022-07-16] MEDS: TAMSULOSIN 0.4 MG CAPSULE PO SCH ×3 (10:17→20:40)
[2022-07-16 14:42] LABS: INR 1.7; PT Patient Result 18.2 SECS (10.1-12.1)
[2022-07-16] MEDS: amLODIPine 5 MG TABLET PO SCH ×2 (20:28→20:39)
[2022-07-16] MEDS: SIMVASTATIN 10 MG TABLET PO SCH ×2 (20:28→20:40)
[2022-07-16] MEDS: FINASTERIDE 5 MG TABLET PO SCH ×2 (20:28→20:40)
[2022-07-16] MEDS: PROMETHAZINE 25 MG/1 ML VIAL IM PRN (22:32)
[2022-07-17 05:26] LABS: Basophils % 0.2 % (0.0-0.8); Eosinophils # 0.1 10*3/uL (0.0-0.87); Eosinophils % 0.5 % (0.00-10.9); Hematocrit 42.4 VOL% (42.0-52.0); Hemoglobin 13.8 GM/DL (14.0-18.0); Immature Granulocytes % 0.3 %; Immature Granulocytes Absolute 0.04 #; Lymphocytes # 2.2 10*3/uL (1.4-4.0); Mean Corpuscular HGB Conc 32.5 GM/DL (32-36); Mean Corpuscular Volume 91.4 FL (87-102); Mean Platelet Volume 10.4 FL (9.6-12.0); Monocytes # 1.1 10*3/uL (0.11-0.8); Monocytes % 8.9 % (1.7-12.7); Neutrophils % 72.1 % (38.7-73.9); Platelet Count 213 T/CUMM (130-400); Red Blood Count 4.64 MC/CUMM (3.8-5.5); Red Cell Distribution Width 13.2 % (9.3-17.3); White Blood Count 12.1 T/CUMM (4-12)
[2022-07-17 05:33] LABS: INR 1.2; PT Patient Result 12.9 SECS (10.1-12.1)
[2022-07-17] MEDS: PROMETHAZINE 25 MG/1 ML VIAL IM PRN (05:42)
[2022-07-17 06:26] LABS: Albumin 2.8 G/DL (3.4-5.0); Bilirubin,Total 0.5 MG/DL (0.20-1.00); Calcium 9.1 MG/DL (8.5-10.1); Osmolality,Calculated 293.5 MOS/KG (273-304); Potassium 3.4 MMOL/L (3.5-5.1); Total Protein 6.9 G/DL (6.4-8.2)
[2022-07-17] MEDS: MORPHINE 2 MG/1 ML SYRINGE IV PRN ×2 (07:57→13:07)
[2022-07-17] MEDS: ONDANSETRON 4 MG/2 ML VIAL IV PRN ×2 (07:57→20:45)
[2022-07-17] MEDS: TAMSULOSIN 0.4 MG CAPSULE PO SCH ×2 (08:28→20:48)
[2022-07-17] MEDS: LOSARTAN 50 MG TABLET PO SCH (08:28)
[2022-07-17] MEDS: MULTIVITAMIN (BEROCCA) TABLET PO SCH (08:29)
[2022-07-17] MEDS ORDERED: BUPIVACAINE MPF 0.25% 10 ML VIAL ONE (10:07)
[2022-07-17] MEDS ORDERED: LIDOCAINE 1% 5 ML VIAL ONE (10:08)
[2022-07-17] MEDS ORDERED: HEPARIN 5,000 UNIT/1 ML VIAL ONE (10:19)
[2022-07-17] MEDS ORDERED: TISSUE ADHESIVE 1 EACH APPLICATOR TOP ONE (10:19)
[2022-07-17] MEDS ORDERED: ROCURONIUM 50 MG/5 ML VIAL IV ONE (10:25)
[2022-07-17] MEDS ORDERED: SEVOFLURANE 1 UNIT/15 MINUTE INH ONE ×2 (10:25→12:23)
[2022-07-17] MEDS ORDERED: propofoL 200 MG/20 ML VIAL IV ONE ×2 (10:25→11:59)
[2022-07-17] MEDS ORDERED: LIDOCAINE 2% 5 ML VIAL ONE (10:25)
[2022-07-17] MEDS ORDERED: fentaNYL 100 MCG/2 ML VIAL ONE (10:25)
[2022-07-17] MEDS ORDERED: SODIUM CHLORIDE 0.9% 250 ML IV SCH (11:00)
[2022-07-17] MEDS ORDERED: ALBUMIN 5% 12.5 GM/250 ML VIAL IV ONE ×2 (11:19→11:35)
[2022-07-17] MEDS ORDERED: HEPARIN/NACL 0.9% 2 UNITS/ML 1,000 UNIT/500 ML BAG IV ONE (11:24)
[2022-07-17] MEDS ORDERED: PHENYLEPHRINE 10 MG/1 ML VIAL IV ONE (11:25)
[2022-07-17] MEDS ORDERED: SUGAMMADEX 200 MG/2 ML VIAL IV ONE (12:06)
[2022-07-17] MEDS ORDERED: ONDANSETRON 4 MG/2 ML VIAL ONE (12:06)
[2022-07-17] MEDS ORDERED: DEXAMETHASONE 4 MG/1 ML VIAL ONE (12:06)
[2022-07-17] MEDS ORDERED: NEOSTIGMINE 10 MG/10 ML VIAL ONE (12:10)
[2022-07-17] MEDS ORDERED: MORPHINE 10 MG/1 ML VIAL ONE (13:08)
[2022-07-17] MEDS ORDERED: ACETAMINOPHEN 325 MG TABLET PO PRN (15:22)
[2022-07-17] MEDS ORDERED: HYDROmorphone 1 MG/1 ML SYRINGE IV PRN ×2 (15:22)
[2022-07-17] MEDS ORDERED: ALBUTEROL/IPRATROPIUM 3 ML NEB RESP TX PRN (15:22)
[2022-07-17] MEDS: LACTATED RINGERS 1,000 ML IV SCH (16:01)
[2022-07-17] MEDS: amLODIPine 5 MG TABLET PO SCH (20:48)
[2022-07-17] MEDS: SIMVASTATIN 10 MG TABLET PO SCH (20:48)
[2022-07-17] MEDS: FINASTERIDE 5 MG TABLET PO SCH (20:48)
[2022-07-17] MEDS: ceFAZolin 2,000 MG/50 ML DUPLEX IV SCH (20:58)
[2022-07-18] MEDS: LACTATED RINGERS 1,000 ML IV SCH ×4 (00:26→22:11)
[2022-07-18 04:20] LABS: Basophils % 0.3 % (0.0-0.8); Eosinophils # 0.1 10*3/uL (0.0-0.87); Eosinophils % 1.1 % (0.00-10.9); Hematocrit 31.7 VOL% (42.0-52.0); Hemoglobin 10.2 GM/DL (14.0-18.0); Immature Granulocytes % 0.2 %; Immature Granulocytes Absolute 0.02 #; Lymphocytes % 29.3 % (21.2-54.2); Mean Corpuscular HGB Conc 32.2 GM/DL (32-36); Mean Corpuscular Volume 92.4 FL (87-102); Mean Platelet Volume 9.9 FL (9.6-12.0); Monocytes % 10.3 % (1.7-12.7); Neutrophils % 58.8 % (38.7-73.9); Platelet Count 156 T/CUMM (130-400); Red Blood Count 3.43 MC/CUMM (3.8-5.5); Red Cell Distribution Width 13.1 % (9.3-17.3); White Blood Count 10.1 T/CUMM (4-12)
[2022-07-18 04:34] LABS: Calcium 7.3 MG/DL (8.5-10.1); Osmolality,Calculated 301.1 MOS/KG (273-304); Potassium 3.8 MMOL/L (3.5-5.1)
[2022-07-18] MEDS: ceFAZolin 2,000 MG/50 ML DUPLEX IV SCH (05:02)
[2022-07-18] MEDS: TAMSULOSIN 0.4 MG CAPSULE PO SCH ×2 (08:18→21:40)
[2022-07-18] MEDS: PANTOPRAZOLE 40 MG VIAL IV SCH (08:18)
[2022-07-18] MEDS: MULTIVITAMIN (BEROCCA) TABLET PO SCH (08:18)
[2022-07-18] MEDS: LOSARTAN 50 MG TABLET PO SCH (08:18)
[2022-07-18] MEDS ORDERED: MAGNESIUM SULF RIDER 1 GM/100 ML PREMIX IV ONE (10:04)
[2022-07-18] MEDS: PROMETHAZINE 25 MG/1 ML VIAL IM PRN (16:55)
[2022-07-18] MEDS: SIMVASTATIN 10 MG TABLET PO SCH (21:40)
[2022-07-18] MEDS: FINASTERIDE 5 MG TABLET PO SCH (21:41)
[2022-07-18] MEDS: amLODIPine 5 MG TABLET PO SCH (21:41)
[2022-07-19] MEDS: LACTATED RINGERS 1,000 ML IV SCH ×2 (02:12→15:00)
[2022-07-19 05:01] LABS: Basophils % 0.3 % (0.0-0.8); Eosinophils # 0.2 10*3/uL (0.0-0.87); Eosinophils % 2.6 % (0.00-10.9); Hematocrit 31.2 VOL% (42.0-52.0); Immature Granulocytes % 0.1 %; Immature Granulocytes Absolute 0.01 #; Lymphocytes # 2.1 10*3/uL (1.4-4.0); Lymphocytes % 26.9 % (21.2-54.2); Mean Corpuscular HGB Conc 32.1 GM/DL (32-36); Mean Platelet Volume 10.2 FL (9.6-12.0); Monocytes # 1.1 10*3/uL (0.11-0.8); Monocytes % 13.7 % (1.7-12.7); Neutrophils % 56.4 % (38.7-73.9); Platelet Count 147 T/CUMM (130-400); Red Blood Count 3.39 MC/CUMM (3.8-5.5); Red Cell Distribution Width 12.9 % (9.3-17.3); White Blood Count 7.8 T/CUMM (4-12)
[2022-07-19 05:07] LABS: Calcium 7.4 MG/DL (8.5-10.1); Osmolality,Calculated 300.4 MOS/KG (273-304); Potassium 3.7 MMOL/L (3.5-5.1)
[2022-07-19 05:37] LABS: Lymphocytes 28 % (20-55)
[2022-07-19 05:38] LABS: Eosinophils 4 % (0-10); Hypochromia Slight; Microcytosis 1+; Ovalocytes Slight; Platelet Estimate Adequate; Total Cells Counted 100
[2022-07-19] MEDS: MULTIVITAMIN (BEROCCA) TABLET PO SCH (08:44)
[2022-07-19] MEDS: TAMSULOSIN 0.4 MG CAPSULE PO SCH ×2 (08:44→20:53)
[2022-07-19] MEDS: LOSARTAN 50 MG TABLET PO SCH (08:44)
[2022-07-19] MEDS: PANTOPRAZOLE 40 MG VIAL IV SCH (08:44)
[2022-07-19] MEDS ORDERED: HEPARIN 10,000 UNIT/10 ML VIAL IV PRN (09:48)
[2022-07-19] MEDS: ONDANSETRON 4 MG/2 ML VIAL IV PRN (20:52)
[2022-07-19] MEDS: amLODIPine 5 MG TABLET PO SCH (20:53)
[2022-07-19] MEDS: FINASTERIDE 5 MG TABLET PO SCH (20:53)
[2022-07-19] MEDS: SIMVASTATIN 10 MG TABLET PO SCH (20:53)
[2022-07-20 06:28] LABS: Basophils % 0.1 % (0.0-0.8); Eosinophils # 0.3 10*3/uL (0.0-0.87); Eosinophils % 4.2 % (0.00-10.9); Hematocrit 26.9 VOL% (42.0-52.0); Hemoglobin 8.9 GM/DL (14.0-18.0); Immature Granulocytes % 0.3 %; Immature Granulocytes Absolute 0.02 #; Lymphocytes # 2.3 10*3/uL (1.4-4.0); Lymphocytes % 29.6 % (21.2-54.2); Mean Corpuscular HGB Conc 33.1 GM/DL (32-36); Mean Corpuscular Volume 91.8 FL (87-102); Mean Platelet Volume 10.4 FL (9.6-12.0); Monocytes % 12.6 % (1.7-12.7); Neutrophils % 53.2 % (38.7-73.9); Platelet Count 128 T/CUMM (130-400); Red Blood Count 2.93 MC/CUMM (3.8-5.5); Red Cell Distribution Width 12.9 % (9.3-17.3); White Blood Count 7.7 T/CUMM (4-12)
[2022-07-20 06:41] LABS: Calcium 7.7 MG/DL (8.5-10.1); Osmolality,Calculated 298.3 MOS/KG (273-304); Potassium 3.8 MMOL/L (3.5-5.1)
[2022-07-20] MEDS: LACTATED RINGERS 1,000 ML IV SCH (07:46)
[2022-07-20] MEDS: LOSARTAN 50 MG TABLET PO SCH (08:25)
[2022-07-20] MEDS: TAMSULOSIN 0.4 MG CAPSULE PO SCH ×2 (08:25→20:16)
[2022-07-20] MEDS: PANTOPRAZOLE 40 MG VIAL IV SCH (08:25)
[2022-07-20] MEDS: MULTIVITAMIN (BEROCCA) TABLET PO SCH (08:25)
[2022-07-20] MEDS: FINASTERIDE 5 MG TABLET PO SCH (20:16)
[2022-07-20] MEDS: amLODIPine 5 MG TABLET PO SCH (20:16)
[2022-07-20] MEDS: SIMVASTATIN 10 MG TABLET PO SCH (20:16)
[2022-07-21 05:53] LABS: Basophils % 0.1 % (0.0-0.8); Eosinophils # 0.4 10*3/uL (0.0-0.87); Eosinophils % 5.4 % (0.00-10.9); Hematocrit 26.4 VOL% (42.0-52.0); Hemoglobin 8.6 GM/DL (14.0-18.0); Immature Granulocytes % 0.3 %; Immature Granulocytes Absolute 0.02 #; Lymphocytes % 26.9 % (21.2-54.2); Mean Corpuscular HGB Conc 32.6 GM/DL (32-36); Mean Platelet Volume 10.2 FL (9.6-12.0); Monocytes # 0.8 10*3/uL (0.11-0.8); Monocytes % 10.1 % (1.7-12.7); Neutrophils % 57.2 % (38.7-73.9); Platelet Count 134 T/CUMM (130-400); Red Cell Distribution Width 12.5 % (9.3-17.3); White Blood Count 7.5 T/CUMM (4-12)
[2022-07-21 06:04] LABS: Calcium 7.9 MG/DL (8.5-10.1); Osmolality,Calculated 300.3 MOS/KG (273-304); Potassium 3.7 MMOL/L (3.5-5.1)
[2022-07-21 08:35] VITALS: BP 120/69
[2022-07-21] MEDS: LOSARTAN 50 MG TABLET PO SCH (13:24)
[2022-07-21] MEDS: MULTIVITAMIN (BEROCCA) TABLET PO SCH (13:24)
[2022-07-21] MEDS: TAMSULOSIN 0.4 MG CAPSULE PO SCH (13:24)
[2022-07-21] MEDS: PANTOPRAZOLE 40 MG VIAL IV SCH (13:25)
== END 2022-07-21 16:19 | disposition home or self-care (01) | DRG 353 ==
LOC: N.EDINP 00:05 → N.ED 00:05 → SUATTDRO 02:31 → N.EDINP 03:30 → N.3E 03:44 → N.ICU 07-17 13:19 → N.5E 07-20 21:10
PROVIDERS: ADMIT Emergency Medicine; ATTEND Internal Medicine

== ENCOUNTER 2022-10-15 02:10 | Inpatient (IN) ==
[2022-10-15 03:27] LABS: Basophils % 0.3 % (0.0-0.8); Eosinophils % 0.2 % (0.00-10.9); Hematocrit 36.2 VOL% (42.0-52.0); Hemoglobin 11.8 GM/DL (14.0-18.0); Immature Granulocytes % 0.4 %; Immature Granulocytes Absolute 0.04 #; Lymphocytes # 1.5 10*3/uL (1.4-4.0); Lymphocytes % 14.6 % (21.2-54.2); Mean Corpuscular HGB Conc 32.6 GM/DL (32-36); Mean Corpuscular Volume 91.2 FL (87-102); Mean Platelet Volume 10.3 FL (9.6-12.0); Monocytes # 0.9 10*3/uL (0.11-0.8); Monocytes % 8.5 % (1.7-12.7); Platelet Count 174 T/CUMM (130-400); Red Blood Count 3.97 MC/CUMM (3.8-5.5); Red Cell Distribution Width 14.1 % (9.3-17.3); White Blood Count 10.26 T/CUMM (4-12)
[2022-10-15 03:40] LABS: Albumin 3.2 G/DL (3.4-5.0); Bilirubin,Total 0.4 MG/DL (0.20-1.00); Calcium 7.8 MG/DL (8.5-10.1); Osmolality,Calculated 290.5 MOS/KG (273-304); Potassium 3.1 MMOL/L (3.5-5.1); Total Protein 7.8 G/DL (6.4-8.2)
[2022-10-15] MEDS ORDERED: POTASSIUM CHLORIDE 20 MEQ TABLET PO STA (03:51)
[2022-10-15 04:08] LABS: INR 2.3; PT Patient Result 23.7 SECS (10.1-12.1)
[2022-10-15] MEDS ORDERED: ONDANSETRON 4 MG/2 ML VIAL IV PRN (05:42)
[2022-10-15] MEDS ORDERED: ceFAZolin 1,000 MG VIAL INTRAPERIT SCH (06:00)
[2022-10-15] MEDS ORDERED: diphenhydrAMINE CAP 25 MG CAPSULE PO PRN (06:30)
[2022-10-15] MEDS: MULTIVITAMIN (BEROCCA) TABLET PO SCH (10:25)
[2022-10-15] MEDS: FUROSEMIDE 80 MG TABLET PO SCH (10:25)
[2022-10-15] MEDS: PANTOPRAZOLE 40 MG TABLET PO SCH (10:26)
[2022-10-15] MEDS: TAMSULOSIN 0.4 MG CAPSULE PO SCH ×2 (10:26→21:18)
[2022-10-15] MEDS: LOSARTAN 50 MG TABLET PO SCH (10:26)
[2022-10-15] MEDS: SIMETHICONE CHEW 80 MG TABLET PO SCH ×2 (11:05→21:18)
[2022-10-15] MEDS ORDERED: WARFARIN 10 MG TABLET PO SCH (18:00)
[2022-10-15] MEDS: ACETAMINOPHEN 325 MG TABLET PO PRN (21:17)
[2022-10-15] MEDS: SIMVASTATIN 10 MG TABLET PO SCH (21:18)
[2022-10-15] MEDS: POTASSIUM CHLORIDE 20 MEQ TABLET PO SCH (21:18)
[2022-10-15] MEDS: amLODIPine 5 MG TABLET PO SCH (21:18)
[2022-10-15] MEDS: FINASTERIDE 5 MG TABLET PO SCH (21:18)
[2022-10-16 05:39] LABS: Basophils % 0.3 % (0.0-0.8); Eosinophils # 0.2 10*3/uL (0.0-0.87); Eosinophils % 2.8 % (0.00-10.9); Hematocrit 32.7 VOL% (42.0-52.0); Hemoglobin 10.5 GM/DL (14.0-18.0); Immature Granulocytes % 0.3 %; Immature Granulocytes Absolute 0.02 #; Lymphocytes # 2.6 10*3/uL (1.4-4.0); Lymphocytes % 33.1 % (21.2-54.2); Mean Corpuscular HGB Conc 32.1 GM/DL (32-36); Mean Corpuscular Volume 91.3 FL (87-102); Mean Platelet Volume 10.3 FL (9.6-12.0); Monocytes # 0.8 10*3/uL (0.11-0.8); Neutrophils % 53.5 % (38.7-73.9); Platelet Count 146 T/CUMM (130-400); Red Blood Count 3.58 MC/CUMM (3.8-5.5); Red Cell Distribution Width 14.2 % (9.3-17.3); White Blood Count 7.73 T/CUMM (4-12)
[2022-10-16 06:00] LABS: Alanine Aminotransferase 17 U/L (16-61); Albumin 2.8 G/DL (3.4-5.0); Alkaline Phosphatase 52 U/L (45-117); Aspartate Amino Transferase 25 U/L (0-37); Bilirubin,Total < 0.39 MG/DL (0.20-1.00); Blood Urea Nitrogen 58 MG/DL (7-18); Calcium 8.2 MG/DL (8.5-10.1); Carbon Dioxide 20 MMOL/L (21-32); Chloride 105 MMOL/L (98-107); Glucose 100 MG/DL (74-106); Osmolality,Calculated 290.7 MOS/KG (273-304); Potassium 3.8 MMOL/L (3.5-5.1); Sodium 138 MMOL/L (136-145); Total Protein 6.5 G/DL (6.4-8.2)
[2022-10-16 06:03] LABS: INR 1.9; PT Patient Result 20.3 SECS (10.1-12.1)
[2022-10-16] MEDS: FUROSEMIDE 80 MG TABLET PO SCH (08:14)
[2022-10-16] MEDS: PANTOPRAZOLE 40 MG TABLET PO SCH (08:14)
[2022-10-16] MEDS: TAMSULOSIN 0.4 MG CAPSULE PO SCH ×2 (08:14→20:49)
[2022-10-16] MEDS: LOSARTAN 50 MG TABLET PO SCH (08:14)
[2022-10-16] MEDS: SIMETHICONE CHEW 80 MG TABLET PO SCH ×2 (08:14→20:49)
[2022-10-16] MEDS: MULTIVITAMIN (BEROCCA) TABLET PO SCH (08:14)
[2022-10-16] MEDS: POTASSIUM CHLORIDE 20 MEQ TABLET PO SCH ×2 (08:14→20:50)
[2022-10-16] MEDS ORDERED: SODIUM CHLORIDE 0.9% 1,000 ML IV ONE (09:21)
[2022-10-16] MEDS: SIMVASTATIN 10 MG TABLET PO SCH (20:49)
[2022-10-16] MEDS: amLODIPine 5 MG TABLET PO SCH (20:49)
[2022-10-16] MEDS: FINASTERIDE 5 MG TABLET PO SCH (20:50)
[2022-10-17 05:56] LABS: Basophils % 0.2 % (0.0-0.8); Eosinophils # 0.3 10*3/uL (0.0-0.87); Hematocrit 31.7 VOL% (42.0-52.0); Hemoglobin 10.2 GM/DL (14.0-18.0); Immature Granulocytes % 0.2 %; Immature Granulocytes Absolute 0.01 #; Lymphocytes # 2.2 10*3/uL (1.4-4.0); Lymphocytes % 34.8 % (21.2-54.2); Mean Corpuscular HGB Conc 32.2 GM/DL (32-36); Mean Corpuscular Volume 92.2 FL (87-102); Mean Platelet Volume 10.9 FL (9.6-12.0); Monocytes # 0.5 10*3/uL (0.11-0.8); Monocytes % 8.7 % (1.7-12.7); Neutrophils % 52.1 % (38.7-73.9); Platelet Count 144 T/CUMM (130-400); Red Blood Count 3.44 MC/CUMM (3.8-5.5); Red Cell Distribution Width 14.2 % (9.3-17.3); White Blood Count 6.24 T/CUMM (4-12)
[2022-10-17 06:03] LABS: INR 1.2; PT Patient Result 12.9 SECS (10.1-12.1)
[2022-10-17 06:20] LABS: Calcium 8.5 MG/DL (8.5-10.1); Osmolality,Calculated 292.5 MOS/KG (273-304); Potassium 3.8 MMOL/L (3.5-5.1)
[2022-10-17] MEDS ORDERED: SODIUM CHLORIDE 0.9% 250 ML IV SCH (08:00)
[2022-10-17] MEDS: MULTIVITAMIN (BEROCCA) TABLET PO SCH (08:13)
[2022-10-17] MEDS: SIMETHICONE CHEW 80 MG TABLET PO SCH ×2 (08:14→21:44)
[2022-10-17] MEDS: TAMSULOSIN 0.4 MG CAPSULE PO SCH (08:14)
[2022-10-17] MEDS: POTASSIUM CHLORIDE 20 MEQ TABLET PO SCH ×2 (08:14→21:44)
[2022-10-17] MEDS: PANTOPRAZOLE 40 MG TABLET PO SCH (08:14)
[2022-10-17] MEDS ORDERED: MIDAZOLAM 2 MG/2 ML VIAL ONE (08:30)
[2022-10-17] MEDS ORDERED: LIDOCAINE 2% 5 ML VIAL ONE (08:30)
[2022-10-17] MEDS ORDERED: fentaNYL 100 MCG/2 ML VIAL ONE (08:30)
[2022-10-17] MEDS ORDERED: propofoL 200 MG/20 ML VIAL IV ONE (08:30)
[2022-10-17] MEDS ORDERED: PHENYLEPHRINE 1 MG/10 ML SYRINGE IV ONE (08:43)
[2022-10-17] MEDS: FLUDROCORTISONE 0.1 MG TABLET PO SCH (14:30)
[2022-10-17] MEDS: ACETAMINOPHEN 325 MG TABLET PO PRN (20:40)
[2022-10-17] MEDS: SIMVASTATIN 10 MG TABLET PO SCH (21:45)
[2022-10-17] MEDS: FINASTERIDE 5 MG TABLET PO SCH (21:45)
[2022-10-18 05:25] LABS: INR 1.1; PT Patient Result 11.8 SECS (10.1-12.1)
[2022-10-18 05:27] LABS: Basophils % 0.2 % (0.0-0.8); Eosinophils # 0.4 10*3/uL (0.0-0.87); Eosinophils % 7.5 % (0.00-10.9); Hematocrit 29.8 VOL% (42.0-52.0); Hemoglobin 9.9 GM/DL (14.0-18.0); Immature Granulocytes % 0.4 %; Immature Granulocytes Absolute 0.02 #; Lymphocytes # 2.1 10*3/uL (1.4-4.0); Lymphocytes % 43.4 % (21.2-54.2); Mean Corpuscular HGB Conc 33.2 GM/DL (32-36); Mean Corpuscular Volume 90.3 FL (87-102); Mean Platelet Volume 11.3 FL (9.6-12.0); Monocytes # 0.4 10*3/uL (0.11-0.8); Neutrophils % 39.5 % (38.7-73.9); Platelet Count 134 T/CUMM (130-400); Red Cell Distribution Width 14.2 % (9.3-17.3); White Blood Count 4.91 T/CUMM (4-12)
[2022-10-18 05:57] LABS: Osmolality,Calculated 290.5 MOS/KG (273-304); Potassium 3.7 MMOL/L (3.5-5.1)
[2022-10-18] MEDS: PANTOPRAZOLE 40 MG TABLET PO SCH (09:18)
[2022-10-18] MEDS: SIMETHICONE CHEW 80 MG TABLET PO SCH ×2 (09:18→22:14)
[2022-10-18] MEDS: MULTIVITAMIN (BEROCCA) TABLET PO SCH (09:18)
[2022-10-18] MEDS: POTASSIUM CHLORIDE 20 MEQ TABLET PO SCH ×2 (09:18→22:14)
[2022-10-18] MEDS: FLUDROCORTISONE 0.1 MG TABLET PO SCH (09:18)
[2022-10-18] MEDS ORDERED: FLUDROCORTISONE 0.1 MG TABLET PO ONE (09:41)
[2022-10-18] MEDS: FINASTERIDE 5 MG TABLET PO SCH (22:14)
[2022-10-18] MEDS: SIMVASTATIN 10 MG TABLET PO SCH (22:15)
[2022-10-19] MEDS: VANCOMYCIN 1,000 MG VIAL INTRAPERIT SCH ×2 (00:16→21:31)
[2022-10-19 06:06] LABS: Basophils % 0.2 % (0.0-0.8); Eosinophils # 0.3 10*3/uL (0.0-0.87); Eosinophils % 6.3 % (0.00-10.9); Hematocrit 27.8 VOL% (42.0-52.0); Hemoglobin 9.1 GM/DL (14.0-18.0); Immature Granulocytes % 0.2 %; Immature Granulocytes Absolute 0.01 #; Lymphocytes # 2.5 10*3/uL (1.4-4.0); Lymphocytes % 47.8 % (21.2-54.2); Mean Corpuscular HGB Conc 32.7 GM/DL (32-36); Mean Corpuscular Volume 90.3 FL (87-102); Mean Platelet Volume 11.1 FL (9.6-12.0); Monocytes # 0.3 10*3/uL (0.11-0.8); Monocytes % 6.5 % (1.7-12.7); Platelet Count 143 T/CUMM (130-400); Red Blood Count 3.08 MC/CUMM (3.8-5.5); White Blood Count 5.27 T/CUMM (4-12)
[2022-10-19 06:27] LABS: Calcium 7.8 MG/DL (8.5-10.1); Osmolality,Calculated 293.1 MOS/KG (273-304); Potassium 3.7 MMOL/L (3.5-5.1)
[2022-10-19] MEDS: FLUDROCORTISONE 0.1 MG TABLET PO SCH (09:02)
[2022-10-19] MEDS: PANTOPRAZOLE 40 MG TABLET PO SCH (09:02)
[2022-10-19] MEDS: MULTIVITAMIN (BEROCCA) TABLET PO SCH (09:02)
[2022-10-19] MEDS: SIMETHICONE CHEW 80 MG TABLET PO SCH ×2 (09:02→21:32)
[2022-10-19] MEDS: POTASSIUM CHLORIDE 20 MEQ TABLET PO SCH ×2 (09:02→21:33)
[2022-10-19] MEDS: FINASTERIDE 5 MG TABLET PO SCH (21:31)
[2022-10-19] MEDS: TAMSULOSIN 0.4 MG CAPSULE PO SCH (21:33)
[2022-10-19] MEDS: SIMVASTATIN 10 MG TABLET PO SCH (21:35)
[2022-10-20 05:51] LABS: Basophils % 0.2 % (0.0-0.8); Eosinophils # 0.3 10*3/uL (0.0-0.87); Eosinophils % 5.2 % (0.00-10.9); Hemoglobin 9.4 GM/DL (14.0-18.0); Immature Granulocytes % 0.2 %; Immature Granulocytes Absolute 0.01 #; Lymphocytes # 2.5 10*3/uL (1.4-4.0); Lymphocytes % 47.3 % (21.2-54.2); Mean Corpuscular HGB Conc 32.4 GM/DL (32-36); Mean Corpuscular Volume 90.3 FL (87-102); Monocytes # 0.4 10*3/uL (0.11-0.8); Monocytes % 7.7 % (1.7-12.7); Neutrophils % 39.4 % (38.7-73.9); Platelet Count 148 T/CUMM (130-400); Red Blood Count 3.21 MC/CUMM (3.8-5.5); Red Cell Distribution Width 13.6 % (9.3-17.3); White Blood Count 5.22 T/CUMM (4-12)
[2022-10-20 06:12] LABS: Calcium 8.1 MG/DL (8.5-10.1); Osmolality,Calculated 293.3 MOS/KG (273-304); Potassium 3.9 MMOL/L (3.5-5.1)
[2022-10-20] MEDS ORDERED: HEPARIN 5,000 UNIT/1 ML VIAL IV ONE (09:40)
[2022-10-20] MEDS: POTASSIUM CHLORIDE 20 MEQ TABLET PO SCH ×2 (09:57→22:31)
[2022-10-20] MEDS: FLUDROCORTISONE 0.1 MG TABLET PO SCH (09:58)
[2022-10-20] MEDS: PANTOPRAZOLE 40 MG TABLET PO SCH (09:58)
[2022-10-20] MEDS: TAMSULOSIN 0.4 MG CAPSULE PO SCH ×2 (09:58→22:32)
[2022-10-20] MEDS: SIMETHICONE CHEW 80 MG TABLET PO SCH ×2 (09:58→22:31)
[2022-10-20] MEDS: MULTIVITAMIN (BEROCCA) TABLET PO SCH (09:58)
[2022-10-20] MEDS: HEPARIN DRIP 25,000 UNITS/500 ML PREMIX IV SCH (10:57)
[2022-10-20] MEDS ORDERED: WARFARIN 5 MG TABLET PO SCH (18:00)
[2022-10-20] MEDS: SIMVASTATIN 10 MG TABLET PO SCH (22:31)
[2022-10-20] MEDS: FINASTERIDE 5 MG TABLET PO SCH (22:31)
[2022-10-20] MEDS: amLODIPine 5 MG TABLET PO SCH (22:32)
[2022-10-20] MEDS: VANCOMYCIN 1,000 MG VIAL INTRAPERIT SCH (23:54)
[2022-10-21 02:19] LABS: Basophils % 0.3 % (0.0-0.8); Eosinophils # 0.3 10*3/uL (0.0-0.87); Eosinophils % 4.7 % (0.00-10.9); Hematocrit 28.7 VOL% (42.0-52.0); Hemoglobin 9.5 GM/DL (14.0-18.0); Immature Granulocytes % 0.3 %; Immature Granulocytes Absolute 0.02 #; Lymphocytes % 45.7 % (21.2-54.2); Mean Corpuscular HGB Conc 33.1 GM/DL (32-36); Mean Corpuscular Volume 89.4 FL (87-102); Mean Platelet Volume 10.7 FL (9.6-12.0); Monocytes # 0.4 10*3/uL (0.11-0.8); Monocytes % 6.7 % (1.7-12.7); Neutrophils % 42.3 % (38.7-73.9); Platelet Count 158 T/CUMM (130-400); Red Blood Count 3.21 MC/CUMM (3.8-5.5); Red Cell Distribution Width 13.7 % (9.3-17.3); White Blood Count 6.58 T/CUMM (4-12)
[2022-10-21 09:00] LABS: PT Patient Result 10.9 SECS (10.1-12.1)
[2022-10-21] MEDS: SIMETHICONE CHEW 80 MG TABLET PO SCH ×2 (09:50→21:26)
[2022-10-21] MEDS: MULTIVITAMIN (BEROCCA) TABLET PO SCH (09:50)
[2022-10-21] MEDS: FLUDROCORTISONE 0.1 MG TABLET PO SCH (09:50)
[2022-10-21] MEDS: PANTOPRAZOLE 40 MG TABLET PO SCH (09:51)
[2022-10-21] MEDS: POTASSIUM CHLORIDE 20 MEQ TABLET PO SCH ×2 (09:51→21:26)
[2022-10-21] MEDS: FUROSEMIDE 80 MG TABLET PO SCH (09:51)
[2022-10-21] MEDS: TAMSULOSIN 0.4 MG CAPSULE PO SCH ×2 (09:59→21:27)
[2022-10-21] MEDS: HEPARIN DRIP 25,000 UNITS/500 ML PREMIX IV SCH (11:31)
[2022-10-21] MEDS: WARFARIN 7.5 MG TABLET PO SCH (18:05)
[2022-10-21] MEDS: SIMVASTATIN 10 MG TABLET PO SCH (21:26)
[2022-10-21] MEDS: amLODIPine 5 MG TABLET PO SCH (21:26)
[2022-10-21] MEDS: FINASTERIDE 5 MG TABLET PO SCH (21:26)
[2022-10-21] MEDS: VANCOMYCIN 1,000 MG VIAL INTRAPERIT SCH (23:56)
[2022-10-22 04:49] LABS: Basophils % 0.3 % (0.0-0.8); Eosinophils # 0.3 10*3/uL (0.0-0.87); Hematocrit 26.5 VOL% (42.0-52.0); Immature Granulocytes % 0.2 %; Immature Granulocytes Absolute 0.01 #; Lymphocytes # 2.8 10*3/uL (1.4-4.0); Lymphocytes % 47.6 % (21.2-54.2); Mean Corpuscular Volume 89.2 FL (87-102); Mean Platelet Volume 10.5 FL (9.6-12.0); Monocytes # 0.4 10*3/uL (0.11-0.8); Monocytes % 6.9 % (1.7-12.7); Platelet Count 161 T/CUMM (130-400); Red Blood Count 2.97 MC/CUMM (3.8-5.5); Red Cell Distribution Width 13.7 % (9.3-17.3); White Blood Count 5.97 T/CUMM (4-12)
[2022-10-22 05:07] LABS: Osmolality,Calculated 288.5 MOS/KG (273-304); Potassium 3.9 MMOL/L (3.5-5.1)
[2022-10-22 05:14] LABS: Partial Thromboplastin Time 62.6 SECS (23.7-32.9)
[2022-10-22] MEDS: MULTIVITAMIN (BEROCCA) TABLET PO SCH (08:27)
[2022-10-22] MEDS: TAMSULOSIN 0.4 MG CAPSULE PO SCH ×2 (08:27→22:30)
[2022-10-22] MEDS: SIMETHICONE CHEW 80 MG TABLET PO SCH ×2 (08:27→22:28)
[2022-10-22] MEDS: PANTOPRAZOLE 40 MG TABLET PO SCH (08:27)
[2022-10-22] MEDS: FLUDROCORTISONE 0.1 MG TABLET PO SCH (08:27)
[2022-10-22] MEDS: FUROSEMIDE 80 MG TABLET PO SCH (08:27)
[2022-10-22] MEDS: POTASSIUM CHLORIDE 20 MEQ TABLET PO SCH ×2 (08:27→22:29)
[2022-10-22] MEDS: HEPARIN DRIP 25,000 UNITS/500 ML PREMIX IV SCH ×2 (17:20)
[2022-10-22] MEDS ORDERED: WARFARIN 2.5 MG TABLET PO ONE (18:00)
[2022-10-22] MEDS: WARFARIN 7.5 MG TABLET PO SCH (18:06)
[2022-10-22] MEDS: amLODIPine 5 MG TABLET PO SCH (22:29)
[2022-10-22] MEDS: SIMVASTATIN 10 MG TABLET PO SCH (22:30)
[2022-10-22] MEDS: FINASTERIDE 5 MG TABLET PO SCH (22:30)
[2022-10-22] MEDS: VANCOMYCIN 1,000 MG VIAL INTRAPERIT SCH (23:27)
[2022-10-23 07:20] LABS: Basophils % 0.3 % (0.0-0.8); Eosinophils # 0.3 10*3/uL (0.0-0.87); Eosinophils % 4.2 % (0.00-10.9); Hematocrit 27.3 VOL% (42.0-52.0); Immature Granulocytes % 0.3 %; Immature Granulocytes Absolute 0.02 #; Lymphocytes # 2.8 10*3/uL (1.4-4.0); Lymphocytes % 43.9 % (21.2-54.2); Mean Corpuscular Volume 89.8 FL (87-102); Mean Platelet Volume 10.2 FL (9.6-12.0); Monocytes # 0.5 10*3/uL (0.11-0.8); Monocytes % 8.3 % (1.7-12.7); Platelet Count 172 T/CUMM (130-400); Red Blood Count 3.04 MC/CUMM (3.8-5.5); Red Cell Distribution Width 14.3 % (9.3-17.3)
[2022-10-23 07:29] LABS: Calcium 8.2 MG/DL (8.5-10.1); Osmolality,Calculated 285.7 MOS/KG (273-304); Potassium 4.2 MMOL/L (3.5-5.1)
[2022-10-23 07:30] LABS: PT Patient Result 11.4 SECS (10.1-12.1)
[2022-10-23] MEDS: MULTIVITAMIN (BEROCCA) TABLET PO SCH (09:12)
[2022-10-23] MEDS: FLUDROCORTISONE 0.1 MG TABLET PO SCH (09:12)
[2022-10-23] MEDS: TAMSULOSIN 0.4 MG CAPSULE PO SCH ×2 (09:12→20:43)
[2022-10-23] MEDS: PANTOPRAZOLE 40 MG TABLET PO SCH (09:12)
[2022-10-23] MEDS: SIMETHICONE CHEW 80 MG TABLET PO SCH ×2 (09:12→20:42)
[2022-10-23] MEDS: POTASSIUM CHLORIDE 20 MEQ TABLET PO SCH ×2 (09:12→20:42)
[2022-10-23] MEDS: HEPARIN DRIP 25,000 UNITS/500 ML PREMIX IV SCH ×2 (11:15→20:46)
[2022-10-23] MEDS: WARFARIN 10 MG TABLET PO SCH (17:22)
[2022-10-23] MEDS: FINASTERIDE 5 MG TABLET PO SCH (20:43)
[2022-10-23] MEDS: amLODIPine 5 MG TABLET PO SCH (20:43)
[2022-10-23] MEDS: SIMVASTATIN 10 MG TABLET PO SCH (20:43)
[2022-10-24] MEDS: VANCOMYCIN 1,000 MG VIAL INTRAPERIT SCH (01:08)
[2022-10-24 05:26] LABS: Basophils % 0.2 % (0.0-0.8); Eosinophils # 0.3 10*3/uL (0.0-0.87); Eosinophils % 3.8 % (0.00-10.9); Hematocrit 27.3 VOL% (42.0-52.0); Hemoglobin 9.1 GM/DL (14.0-18.0); Immature Granulocytes % 0.5 %; Immature Granulocytes Absolute 0.03 #; Lymphocytes # 3.2 10*3/uL (1.4-4.0); Lymphocytes % 48.2 % (21.2-54.2); Mean Corpuscular HGB Conc 33.3 GM/DL (32-36); Mean Corpuscular Volume 90.4 FL (87-102); Mean Platelet Volume 10.4 FL (9.6-12.0); Monocytes # 0.5 10*3/uL (0.11-0.8); Monocytes % 7.6 % (1.7-12.7); Neutrophils % 39.7 % (38.7-73.9); Platelet Count 190 T/CUMM (130-400); Red Blood Count 3.02 MC/CUMM (3.8-5.5); Red Cell Distribution Width 14.3 % (9.3-17.3); White Blood Count 6.54 T/CUMM (4-12)
[2022-10-24 05:37] LABS: INR 1.1; PT Patient Result 12.5 SECS (10.1-12.1)
[2022-10-24 05:47] LABS: Calcium 8.2 MG/DL (8.5-10.1); Osmolality,Calculated 286.5 MOS/KG (273-304); Potassium 4.2 MMOL/L (3.5-5.1)
[2022-10-24] MEDS ORDERED: MAGNESIUM SULF RIDER 2 GM/50 ML PREMIX IV ONE (07:33)
[2022-10-24] MEDS: SIMETHICONE CHEW 80 MG TABLET PO SCH ×2 (09:01→22:02)
[2022-10-24] MEDS: FLUDROCORTISONE 0.1 MG TABLET PO SCH (09:01)
[2022-10-24] MEDS: PANTOPRAZOLE 40 MG TABLET PO SCH (09:01)
[2022-10-24] MEDS: MULTIVITAMIN (BEROCCA) TABLET PO SCH (09:01)
[2022-10-24] MEDS: POTASSIUM CHLORIDE 20 MEQ TABLET PO SCH ×2 (09:01→22:02)
[2022-10-24] MEDS: TAMSULOSIN 0.4 MG CAPSULE PO SCH ×2 (09:01→22:02)
[2022-10-24] MEDS: HEPARIN DRIP 25,000 UNITS/500 ML PREMIX IV SCH (10:44)
[2022-10-24] MEDS: WARFARIN 10 MG TABLET PO SCH (17:08)
[2022-10-24] MEDS: SIMVASTATIN 10 MG TABLET PO SCH (22:02)
[2022-10-24] MEDS: FINASTERIDE 5 MG TABLET PO SCH (22:02)
[2022-10-24] MEDS: amLODIPine 5 MG TABLET PO SCH (22:03)
[2022-10-25] MEDS: HEPARIN DRIP 25,000 UNITS/500 ML PREMIX IV SCH (00:01)
[2022-10-25] MEDS: VANCOMYCIN 1,000 MG VIAL INTRAPERIT SCH (00:29)
[2022-10-25 05:36] LABS: Basophils % 0.3 % (0.0-0.8); Eosinophils # 0.3 10*3/uL (0.0-0.87); Hematocrit 28.5 VOL% (42.0-52.0); Hemoglobin 9.2 GM/DL (14.0-18.0); Immature Granulocytes % 0.2 %; Immature Granulocytes Absolute 0.01 #; Lymphocytes % 46.2 % (21.2-54.2); Mean Corpuscular HGB Conc 32.3 GM/DL (32-36); Mean Corpuscular Volume 92.5 FL (87-102); Mean Platelet Volume 10.5 FL (9.6-12.0); Monocytes # 0.6 10*3/uL (0.11-0.8); Monocytes % 8.7 % (1.7-12.7); Neutrophils % 40.6 % (38.7-73.9); Platelet Count 194 T/CUMM (130-400); Red Blood Count 3.08 MC/CUMM (3.8-5.5); Red Cell Distribution Width 14.6 % (9.3-17.3); White Blood Count 6.45 T/CUMM (4-12)
[2022-10-25 05:46] LABS: INR 1.4
[2022-10-25 05:58] LABS: Calcium 8.3 MG/DL (8.5-10.1); Osmolality,Calculated 289.4 MOS/KG (273-304); Potassium 4.5 MMOL/L (3.5-5.1)
[2022-10-25] MEDS: SIMETHICONE CHEW 80 MG TABLET PO SCH ×2 (10:17→21:47)
[2022-10-25] MEDS: PANTOPRAZOLE 40 MG TABLET PO SCH (10:18)
[2022-10-25] MEDS: MULTIVITAMIN (BEROCCA) TABLET PO SCH (10:18)
[2022-10-25] MEDS: TAMSULOSIN 0.4 MG CAPSULE PO SCH ×2 (10:18→21:47)
[2022-10-25] MEDS: POTASSIUM CHLORIDE 20 MEQ TABLET PO SCH ×2 (10:19→21:47)
[2022-10-25] MEDS: FLUDROCORTISONE 0.1 MG TABLET PO SCH (10:19)
[2022-10-25] MEDS ORDERED: WARFARIN 7.5 MG TABLET PO SCH (18:00)
[2022-10-25] MEDS: SIMVASTATIN 10 MG TABLET PO SCH (21:47)
[2022-10-25] MEDS: amLODIPine 5 MG TABLET PO SCH (21:47)
[2022-10-25] MEDS: FINASTERIDE 5 MG TABLET PO SCH (21:47)
[2022-10-26] MEDS: HEPARIN DRIP 25,000 UNITS/500 ML PREMIX IV SCH (05:26)
[2022-10-26 08:19] LABS: Basophils % 0.3 % (0.0-0.8); Eosinophils # 0.3 10*3/uL (0.0-0.87); Eosinophils % 4.2 % (0.00-10.9); Hematocrit 27.8 VOL% (42.0-52.0); Hemoglobin 9.1 GM/DL (14.0-18.0); Immature Granulocytes % 0.3 %; Immature Granulocytes Absolute 0.02 #; Lymphocytes # 2.3 10*3/uL (1.4-4.0); Lymphocytes % 36.3 % (21.2-54.2); Mean Corpuscular HGB Conc 32.7 GM/DL (32-36); Mean Corpuscular Volume 91.4 FL (87-102); Mean Platelet Volume 10.3 FL (9.6-12.0); Monocytes # 0.6 10*3/uL (0.11-0.8); Neutrophils % 49.9 % (38.7-73.9); Platelet Count 198 T/CUMM (130-400); Red Blood Count 3.04 MC/CUMM (3.8-5.5); Red Cell Distribution Width 14.7 % (9.3-17.3)
[2022-10-26 08:35] LABS: INR 1.6; PT Patient Result 16.7 SECS (10.1-12.1)
[2022-10-26 08:36] LABS: Calcium 8.5 MG/DL (8.5-10.1); Potassium 4.3 MMOL/L (3.5-5.1)
[2022-10-26] MEDS: SIMETHICONE CHEW 80 MG TABLET PO SCH ×2 (09:48→20:35)
[2022-10-26] MEDS: FLUDROCORTISONE 0.1 MG TABLET PO SCH (09:48)
[2022-10-26] MEDS: PANTOPRAZOLE 40 MG TABLET PO SCH (09:49)
[2022-10-26] MEDS: POTASSIUM CHLORIDE 20 MEQ TABLET PO SCH ×2 (09:49→20:36)
[2022-10-26] MEDS: MULTIVITAMIN (BEROCCA) TABLET PO SCH (09:49)
[2022-10-26] MEDS: TAMSULOSIN 0.4 MG CAPSULE PO SCH ×2 (09:49→20:36)
[2022-10-26] MEDS ORDERED: MAGNESIUM SULF RIDER 2 GM/50 ML PREMIX IV ONE (10:19)
[2022-10-26] MEDS: WARFARIN 10 MG TABLET PO SCH (17:37)
[2022-10-26] MEDS: SIMVASTATIN 10 MG TABLET PO SCH (20:35)
[2022-10-26] MEDS: amLODIPine 5 MG TABLET PO SCH (20:35)
[2022-10-26] MEDS: FINASTERIDE 5 MG TABLET PO SCH (20:36)
[2022-10-27 02:02] LABS: INR 1.9; PT Patient Result 19.6 SECS (10.1-12.1)
[2022-10-27 08:18] VITALS: BP 120/62
[2022-10-27] MEDS: TAMSULOSIN 0.4 MG CAPSULE PO SCH (08:43)
[2022-10-27] MEDS: POTASSIUM CHLORIDE 20 MEQ TABLET PO SCH (08:43)
[2022-10-27] MEDS: MULTIVITAMIN (BEROCCA) TABLET PO SCH (08:43)
[2022-10-27] MEDS: SIMETHICONE CHEW 80 MG TABLET PO SCH (08:43)
[2022-10-27] MEDS: FLUDROCORTISONE 0.1 MG TABLET PO SCH (08:43)
[2022-10-27] MEDS: PANTOPRAZOLE 40 MG TABLET PO SCH (08:44)
== END 2022-10-27 13:35 | disposition home or self-care (01) | DRG 312 ==
LOC: SUATTDRO → N.EDINP 02:10 → N.ED 02:10 → SUATTDRO 05:42 → OBSVTOIN 05:42 → N.2W 07:34 → N.2E 10-19 14:26
PROVIDERS: ADMIT Internal Medicine; ATTEND Internal Medicine